=== PATIENT | male | born 1960 | race Asian ===

== ENCOUNTER 2017-07-09 16:00 | Emergency (ER) | payer OTHER | END 2017-07-09 16:47 | disposition home or self-care (01) | LOC: ER 16:00 | DX: M77.9 Enthesopathy, unspecified (principal) | CPT/HCPCS: 99283 ==

== ENCOUNTER → 2018-12-30 | Outpatient (CLI) | payer OTHER ==
[2017-07-09 16:40] VITALS: BP 101/66
[~2018-12-30] MED LIST: PRED-220 PO
--- NOTE | 2018-12-30 16:24 | KCIC ---
EXAM: 3 Views Right Shoulder DATE: 12/30/2018 12:00 AM INDICATION: COMPARISON: No Prior FINDINGS: There is no evidence for acute fracture or dislocation. AC joint is congruent. Humeral head is not high riding. IMPRESSION: 1. No acute fracture or dislocation. Electronically signed by: Brant Chacko MD (12/30/2018 4:21 PM) [id number]
--- NOTE | 2018-12-30 17:57 | KCIC ---
CHEST PA LATERAL History: Right-sided chest pain, shoulder pain Comparison: None. Findings: 2 views of the chest are submitted. There is no infiltrate, pneumothorax, or effusion. Pericardial cardiac silhouette is within normal limits in size. Impression: 1. There is no radiographic evidence of acute cardiopulmonary disease. Electronically signed by: Pollo Jones MD (12/30/2018 5:54 PM) [id number]
== END | disposition home or self-care (01) ==
LOC: KCIC 15:43
PROVIDERS: ATTEND Internal Medicine
DX: M25.511 Pain in right shoulder (principal); R07.89 Other chest pain
CPT/HCPCS: 71046; 73030

== ENCOUNTER → 2019-01-15 | Outpatient (CLI) | payer OTHER ==
[2017-07-09 16:40] VITALS: BP 101/66
--- NOTE | 2019-01-15 12:57 | KCIC ---
INDICATION : Right upper quadrant pain COMPARISON: None TECHNIQUE: Multiple ultrasound images obtained through the abdomen in grayscale and color. FINDINGS: Liver: Echotexture within normal limits in visualized portions of liver. Not grossly enlarged. Gallbladder: No wall thickening or stones. IVC: Not well seen. Common Bile Duct: 7 mm Pancreas: No gross abnormality identified in visualized portions of pancreas. Right Kidney: No hydronephrosis. Septated cyst measuring up to 26 x 24 x 17 mm. IMPRESSION: * Common bile duct is mildly dilated up to 7 mm. * Complex cystic lesion of the right kidney. Given the internal complexity follow-up could be obtained in a few months to ensure no growth. Electronically signed by: Jason Cordero MD (01/15/2019 12:54 PM) [id number]
== END | disposition home or self-care (01) ==
LOC: KCIC US 09:35
PROVIDERS: ATTEND Internal Medicine
DX: N28.89 Other specified disorders of kidney and ureter (principal)
CPT/HCPCS: 76705

== ENCOUNTER → 2019-05-07 | Outpatient (CLI) | payer OTHER ==
[2017-07-09 16:40] VITALS: BP 101/66
[~2019-05-07] MED LIST changes: +CONTRAST GIVEN. MC PRN; +IOHEXOL 300 MG/ML 100ML VIAL. IV ONE
--- NOTE | 2019-05-07 17:05 | RAD ---
PQRS Compliance Statement: One or more of the following individualized dose reduction techniques were utilized for this examination: 1. Automated exposure control 2. Adjustment of the mA and/or kV according to patient size 3. Use of iterative reconstruction technique CT ABDOMEN WO/W CONTRAST Clinical Indication: Hepatomegaly, kidney cyst. Comparison: Limited abdominal ultrasound, January 15, 2019. TECHNIQUE: Helical CT imaging of the abdomen is performed before and after 75 cc of Omnipaque 300 IV contrast. Postcontrast imaging occurred during arterial, portal venous, and delayed phases. Findings: No renal calculus is identified. There is no perinephric stranding. The kidneys enhance symmetrically. There are bilateral extrarenal pelves. There are several tiny hypodensities of the left and right kidney, too small to further characterize. There is posterior interpolar right renal septated cyst measuring 1.5 cm x 2.4. Attenuation measures 10 Hounsfield units on the precontrast images. There is motion artifact on the postcontrast images limiting evaluation but no convincing enhancement is identified. Lung bases are clear. There is respiratory motion artifact. Cardiac size normal. Tiny hypodensity in the upper left hepatic lobe, too small to further characterize. Liver otherwise homogeneous. There is hepatomegaly, craniocaudal dimension 19.3 cm. Spleen size upper limits of normal. The spleen is homogeneous. The gallbladder, pancreas, adrenal glands, and abdominal aorta caliber are normal. Stomach is not well distended accentuating the wall thickness. No evidence of bowel obstruction in the abdomen. Visualized appendix is normal caliber. No upper abdominal adenopathy. Bones unremarkable. IMPRESSION: 1. Exam is mildly limited due to respiratory motion artifact. 2. Septated cyst of the right kidney has attenuation of simple fluid on precontrast images and does not demonstrate any enhancement. There are several other bilateral renal hypodensities, too small to further characterize. No follow-up imaging is recommended per consensus recommendations based on imaging criteria. 3. Hepatomegaly. Electronically signed by: Tyson Steele MD (05/07/2019 5:02 PM) [id number]
== END ==
LOC: CT 08:00
PROVIDERS: ATTEND Internal Medicine
DX: N28.1 Cyst of kidney, acquired (principal); R16.0 Hepatomegaly, not elsewhere classified; K83.8 Other specified diseases of biliary tract; M25.811 Other specified joint disorders, right shoulder; D72.819 Decreased white blood cell count, unspecified
CPT/HCPCS: 74170; Q9967